=== PATIENT | female | born 1955 | race Caucasian/White ===

== ENCOUNTER 2024-10-15 07:02 | Day surgery (SDC) | payer OTHER ==
[~2024-10-15] VITALS: Ht 162.6 cm; Wt 63.6 kg
[~2024-10-15 07:02] MED LIST: ESCI-8 PO; FAMO40TA7 PO; MINO10 PO; MONT-40 PO; PRED-729 PO; ROSU10TA72 PO; SODIUM CHLORIDE 0.9% 1,000 ML ONE; SOLI5TAB6 PO; SPIR50TA27 PO
[2024-10-15] MEDS ORDERED: LIDOCAINE 2% 11 ML JELLY TP ONE (07:03)
[2024-10-15] MEDS ORDERED: LIDOCAINE 4% 50 ML SOLUTION TP ONE (07:03)
[2024-10-15] MEDS ORDERED: BENZOCAINE 20% 50 MCG/SPRAY 57 GM TP ONE (07:03)
[2024-10-15] MEDS ORDERED: ALBUTEROL SULFATE 2.5 MG/0.5 ML NEB SOLUTION NEB ONE (07:03)
[2024-10-15] MEDS ORDERED: TRAZ-252 PO (07:58)
[2024-10-15] MEDS ORDERED: BUPR-514 PO (07:58)
[2024-10-15] MEDS ORDERED: CEFU250T87 PO (07:58)
[2024-10-15] MEDS ORDERED: LORA10TA7 PO (07:58)
[2024-10-15] MEDS ORDERED: MIDAZOLAM HCL 2 MG/2 ML VIAL ONE (08:14)
[2024-10-15] MEDS ORDERED: FentaNYL CITRATE PF 100 MCG/2 ML VIAL ONE (08:14)
[2024-10-15] MEDS: SODIUM CHLORIDE 0.9% 1,000 ML IV ONE (09:09)
[2024-10-15 09:53] VITALS: PULSE 67; RESP 16; O2SAT 100
[2024-10-15] MEDS ORDERED: MethylPREDNISolone SOD SUCC 125 MG/2 ML VIAL ONE (10:15)
[2024-10-15] MEDS: MethylPREDNISolone SOD SUCC 125 MG/2 ML VIAL IVP ONE (10:36)
== END 2024-10-15 12:33 | disposition home or self-care (01) ==
LOC: SURGERY 07:02
PROVIDERS: ATTEND Internal Medicine Critical Care Medicine
DX: J38.4 Edema of larynx (principal); B37.0 Candidal stomatitis; E78.00 Pure hypercholesterolemia, unspecified; M19.90 Unspecified osteoarthritis, unspecified site; Z86.73 Personal history of transient ischemic attack (TIA), and cerebral infarction without residual deficits; Z98.890 Other specified postprocedural states; Z79.899 Other long term (current) drug therapy
CPT/HCPCS: 31623; 87206; 87101; 87220; 87070; 88108; 31624; 94640; 71045; 87015; J3010; J2250; J2919; J7030; J7613; Z7610